=== PATIENT | male | born 1975 | race Hispanic/Latino ===

== ENCOUNTER 2017-10-30 09:50 | Emergency (ER) | payer BC ==
[2017-10-30] MEDS ORDERED: MAG HYDROX/AL HYDROX/SIMETH ES 30 ML SUSP UDCUP ONE (10:21)
[2017-10-30] MEDS ORDERED: LIDOCAINE HCL 2% VISCOUS 15 ML UDCUP ONE (10:21)
== END 2017-10-30 11:24 | disposition home or self-care (01) ==
LOC: EDH 09:50
DX: S39.011A Strain of muscle, fascia and tendon of abdomen, initial encounter (principal); M10.9 Gout, unspecified; X58.XXXA Exposure to other specified factors, initial encounter; Y93.89 Activity, other specified; Y92.89 Other specified places as the place of occurrence of the external cause; Y99.8 Other external cause status
CPT/HCPCS: 99282

== ENCOUNTER 2025-01-28 20:12 | Emergency (ER) | payer BC ==
[~2025-01-28] VITALS: Ht 177.8 cm; Wt 99.8 kg
[2025-01-28] MEDS ORDERED: VANCOMYCIN PROTOCOL PER PHARMACY IV SCH (20:30)
[2025-01-28] MEDS ORDERED: NOREPINEPHRIN 4MG/NS 250ML 250 ML IV SCH (20:30)
[2025-01-28] MEDS: NOREPINEPHRIN 4MG/NS 250ML 250 ML IV ONE (20:36)
[2025-01-28] MEDS: morPHINE 4 MG SYG ONE (20:36)
[2025-01-28] MEDS: SODIUM BICARB 50MEQ 50ML VIAL 150 ML ONE (20:36)
[2025-01-28] MEDS: morPHINE 4 MG SYG IVP ONE (20:37)
[2025-01-28] MEDS: LACTATED RINGERS 1000ML IV ONE (20:37)
[2025-01-28] MEDS: SODIUM BICARB 50MEQ 50ML VIAL IV ONE (20:38)
--- NOTE | 2025-01-28 20:40 | ERN ---
General Chief Complaint: Post-Op Problem Stated Complaint: C/O SOB, PAIN TO NECK AND CHEST, POST OP Time Seen by MD: 20:34 History of Present Illness Initial Comments Mr Melendez is a 49 year old male with significant past medical history of recent multiple surgical interventions including and hemorrhoidal banding on Sunday, cholecystectomy on Sunday at [facility] in [place] and prior fissures surgery who presents in acute distress. Per his who is the primary historian he was doing well at home until a sudden episode this evening when he was found leaning over in the room calling for help. He now complains of shoulder pain radiating downward suggestive of referred pain possibly from intra-abdominal free air or irritation. He appears to be hypotensive with a recent oxygen saturation in the 80s. Allergies: Coded Allergies: No Known Drug Allergies (Verified Allergy, Unknown, 07/20/16) Home Meds No Active Prescriptions or Reported Meds Past Medical History Past Medical History: Unknown Past Surgical History: Cholecystectomy ROS Dictation ROS is limited due to condition No fevers chills noted at home Sudden shoulder pain No preceding nausea vomiting or GI bleeding Physical Exam Physical Exam Dictation General: Appears ill leaning forward visibly in pain Head/Face: Normocephalic, atraumatic Eyes: PERRL, EOMI, vision at baseline ENT: oral cavity clear, TMs clear, no signs of infection Neck: Trachea midline, supple, no nuchal rigidity Cardiovascular: RRR, normal S1/S2, No MRGs, no JVD Respiratory: Positive for respiratory distress Abdomen: Diffusely tender concerning for peritonitis Skin: Warm, dry, normal turgor, no rash MS/Extremity: Pulses equal, no cyanosis, neurovascular intact, FROM Neuro: Alert at but uncomfortable Results Laboratory and Microbiology Lab and Micro Result Laboratory Tests Test 01/28/25 20:24 01/29/25 00:02 White Blood Count 13.6 K/uL (4.8-10.8) H Red Blood Count 5.05 MIL/uL (4.50-6.20) Hemoglobin 13.7 g/dL (14.0-18.0) L Hematocrit 43.3 % (42-54) Mean Corpuscular Volume 85.7 fL (79-99) Mean Corpuscular Hemoglobin 27.1 pg (27.0-33.0) Mean Corpuscular Hemoglobin Concent 31.6 g/dL (32.0-36.0) L Red Cell Distribution Width 14.4 % (11.0-15.5) Platelet Count 413 K/uL (130-400) H Mean Platelet Volume 9.4 fL (7.5-10.5) Immature Granulocyte % (Auto) 0.4 % (0-1) Neutrophils (%) (Auto) 57.2 % (40.0-77.0) Lymphocytes (%) (Auto) 28.6 % (21.0-51.0) Monocytes (%) (Auto) 7.4 % (3.0-13.0) Eosinophils (%) (Auto) 5.4 % (0.0-8.0) Basophils (%) (Auto) 1.0 % (0.0-5.0) Neutrophils # (Auto) 7.8 K/uL (1.8-7.7) H Lymphocytes # (Auto) 3.9 K/uL (1.0-4.8) Monocytes # (Auto) 1.0 K/uL (0.1-1.0) Eosinophils # (Auto) 0.74 K/uL (0.00-0.70) H Basophils # (Auto) 0.13 K/uL (0.00-0.20) Absolute Immature Granulocyte (auto 0.06 K/uL (0-1) Nucleated Red Blood Cells 0.0 % (0.0-0.19) Sodium Level 137 mmol/L (136-145) Potassium Level 3.5 mmol/L (3.5-5.1) Chloride Level 98 mmol/L (101-111) L Carbon Dioxide Level 28 mmol/L (21-32) Blood Urea Nitrogen 17 mg/dL (7-18) Creatinine 1.6 mg/dL (0.5-1.3) H Glomerular Filtration Rate Calc 53 mL/min (>90) Random Glucose 137 mg/dL (70-105) H Lactic Acid Level 4.4 mmol/L (0.8-2.5) H 1.6 mmol/L (0.8-2.5) Total Calcium 8.6 mg/dL (8.5-10.1) Magnesium Level 2.30 mg/dL (1.80-2.40) Total Creatine Kinase 112 U/L (21-232) Troponin I High Sensitivity 8 ng/L (4-75) Lipase 31 U/L (16-77) MDM Patient has been accepted for HLOC transfer to [facility] ED Course Orders Procedure Category Date Status Time Norepinephrin 4mg/Ns PHA 01/28/25 Complete 250ml (Levophed 4mg 20:20 Sodium Bicarb 50meq PHA 01/28/25 Complete 50ml Vial (Sodium Bi 20:21 12 Lead Ekg Tracing- EKG 01/28/25 Resulted Technical 20:21 Cbc With Differential LAB 01/28/25 Complete 20:21 Basic Metabolic Panel LAB 01/28/25 Complete 20:21 Creatine Kinase, Total LAB 01/28/25 Complete 20:21 Lactic Acid LAB 01/28/25 Complete 20:21 Blood Cult KARRIE 01/28/25 Complete 20:21 Magnesium LAB 01/28/25 Complete 20:21 Troponin I High LAB 01/28/25 Complete Sensitivity 20:21 Chest 1vw RAD 01/28/25 Resulted 20:21 Ct Abdomen/Pelvis CT 01/28/25 Resulted W/Contrast 20:21 Vancomycin Protocol PHA 01/28/25 Complete (Vancomycin Protocol 20:30 Zosyn 3.375gm+Ns 50ml PHA 01/28/25 Complete (Zosyn 3.375gm+Ns 20:30 Morphine 4mg Syg PHA 01/28/25 Complete (Morphine 4mg Syg) 20:26 Type And Screen BBK 01/28/25 Complete 20:27 Norepinephrin 4mg/Ns PHA 01/28/25 Complete 250ml (Levophed 4mg 20:30 Sodium Bicarb 50meq PHA 01/28/25 Complete 50ml Vial (Sodium Bi 20:30 Morphine 4mg Syg PHA 01/28/25 Complete (Morphine 4mg Syg) 20:30 Lactated Ringers PHA 01/28/25 Complete 1000ml (Lactated 20:30 Vancomycin 2gm/500 Ml PHA 01/28/25 Complete Bag (Vancomycin 2g 21:00 Abd 1vw RAD 01/28/25 Resulted 20:54 Vancomycin 1g/250ml PHA 01/29/25 Complete Kit (Vancomycin 1g/2 09:00 Iohexol (Omnipaque) PHA 01/28/25 Complete 21:25 Lipase LAB 01/28/25 Complete 21:52 Hydromorphone 1 Mg PHA 01/28/25 Complete Inj (Dilaudid 1mg Inj 22:30 Hydromorphone 1 Mg PHA 01/28/25 Complete Inj (Dilaudid 1mg Inj 22:24 Hydromorphone 1 Mg PHA 01/28/25 Complete Inj (Dilaudid 1mg Inj 23:30 Lactic Acid (Removed) LAB 01/28/25 Complete 23:53 Hydromorphone 1 Mg PHA 01/29/25 Complete Inj (Dilaudid 1mg Inj 00:30 Ketorolac PHA 01/29/25 Complete Tromethamine 15mg/Ml 01:00 Vital Signs Date Time Temp Pulse Resp B/P (MAP) Pulse Ox O2 Delivery O2 Flow Rate FiO2 01/29/25 02:55 98.2 54 16 120/77 96 Room Air* 0 01/29/25 02:06 58 17 138/85 96 Room Air* 0 01/29/25 01:12 98.4 76 20 154/74 97 Room Air* 0 01/29/25 00:05 98.4 71 16 135/101 96 Room Air* 0 01/28/25 23:10 98.4 76 19 105/74 99 Room Air* 0 01/28/25 22:25 98.2 70 18 175/102 99 Room Air* 0 01/28/25 20:30 98.4 74 18 164/85 98 Room Air* 0 01/28/25 20:18 97.5 138 20 70/28 86 Room Air 01/28/25 20:15 98.4 72 20 70/48 97 Room Air* 0 21 DX & DISP Disposition: Transfer Departure Impression: Primary Impression: Sepsis Critical Time: 60 minutes Condition: Stable Scripts No Active Prescriptions or Reported Meds Referrals: SELF,REFERRAL (PCP) JOANN CLINTON MD Jan 28, 2025 20:39
[2025-01-28] MEDS: ZOSYN 3.375GM +NS 50ML IV ONE (20:41)
[2025-01-28 20:45] LABS: BASOPHILS # (AUTO) 0.13 K/uL (0.00-0.20); EOSINOPHILS # (AUTO) 0.74 K/uL (0.00-0.70); EOSINOPHILS % (AUTO) 5.4 % (0.0-8.0); HEMATOCRIT 43.3 % (42-54); IMMATURE GRANULOCYTE ABSOLUTE 0.06 K/uL (0-1); LYMPHOCYTES # (AUTO) 3.9 K/uL (1.0-4.8); LYMPHOCYTES % (AUTO) 28.6 % (21.0-51.0); MEAN CORPUSCULAR HEMOGLOBIN 27.1 pg (27.0-33.0); MEAN CORPUSCULAR HGB CONC 31.6 g/dL (32.0-36.0); MEAN CORPUSCULAR VOLUME 85.7 fL (79-99); MONOCYTES % (AUTO) 7.4 % (3.0-13.0); NEUTROPHILS # (AUTO) 7.8 K/uL (1.8-7.7); NEUTROPHILS % (AUTO) 57.2 % (40.0-77.0); PLATELET COUNT (AUTO) 413 K/uL (130-400); RED BLOOD CELL COUNT(AUTO) 5.05 MIL/uL (4.50-6.20); RED CELL DISTRIBUTION WIDTH 14.4 % (11.0-15.5); WHITE BLOOD COUNT (AUTO) 13.6 K/uL (4.8-10.8)
[2025-01-28 21:03] LABS: CREATININE 1.6 mg/dL (0.5-1.3); POTASSIUM 3.5 mmol/L (3.5-5.1)
[2025-01-28 21:08] LABS: MAGNESIUM 2.3 mg/dL (1.80-2.40)
[2025-01-28] MEDS ORDERED: IOHEXOL 350 MG/ML 100ML INFUS..BTL IV ONE (21:25)
--- NOTE | 2025-01-28 21:32 | HMCIMG ---
CHEST 1VW CLINICAL HISTORY: sob COMPARISON: 01/11/2014 TECHNIQUE: Single view of the chest was obtained. FINDINGS: Lungs are clear. The cardiac size and mediastinum are unremarkable. The bony structures are within normal limits. IMPRESSION: No acute cardiopulmonary process identified.
--- NOTE | 2025-01-28 21:42 | HMCIMG ---
ABD 1VW CLINICAL HISTORY: ABD PAIN COMPARISON: None FINDINGS: Single view of the abdomen was obtained. There are multiple air-filled nondilated loops of large and small bowel. The bony structures are unremarkable. IMPRESSION: Ileus versus enteritis
--- NOTE | 2025-01-28 22:05 | HMCIMG ---
CT ABDOMEN/PELVIS W/CONTRAST CLINICAL HISTORY: post surgical pain COMPARISON: 01/08/2014 TECHNIQUE: Sequential axial images of abdomen and pelvis with 100 mL of Omnipaque 350 IV contrast with sagittal and coronal reconstructions. CT was performed with one or more of the following dose reduction techniques: automated exposure control, adjustment of the mA and/or kV according to patient size, or use of iterative reconstruction technique. FINDINGS: There is mild bilateral dependent atelectasis in lung bases. The liver and spleen are unremarkable. There is small air and fluid collection demonstrated within the gallbladder fossa that measures 7.2 x 3.3 cm with mild adjacent stranding most worrisome for postoperative abscess. The pancreas and adrenal glands are unremarkable. Note is made of a small hiatal hernia unchanged from prior bariatric surgery. There is moderate amount of fecal material in the colon with no identified bowel obstruction. The urinary bladder appears mildly distended. The kidneys are unremarkable. There is no free air or free fluid. There is mild stranding at the umbilicus and several small air bubbles consistent with postsurgical inflammatory changes potentially cellulitis. The bony structures appear unremarkable for acute findings. IMPRESSION: Unchanged prior cholecystectomy with findings worrisome for gallbladder fossa abscess. Change After surgery with small hiatal hernia. Likely unremarkable ankle cellulitis from the recent surgery
[2025-01-28] MEDS: hydroMORPHone 1 MG INJ IVP ONE ×2 (22:39→23:22)
[2025-01-28] MEDS: hydroMORPHone 1 MG INJ ONE (22:39)
[2025-01-28] MEDS: VANCOMYCIN 2GM/500 ML BAG 500 ML IV ONE (22:40)
--- NOTE | 2025-01-28 23:06 | HP ---
[facility] HISTORY AND PHYSICAL Date of Service: Jan 28, 2025 Time of Service: 23:06 HISTORY OF PRESENT ILLNESS: [ ] REVIEW OF SYSTEMS CONSTITUTIONAL: Denies fevers, chills, or night sweats. No unintentional weight loss reported. NEUROLOGICAL: Denies headache, amaurosis fugax, motor weakness, sensory deficit, vertigo/spinning sensation, gait abnormalities, or tremors. ENT: No hearing loss, otalgia, otorrhea, rhinitis, rhinorrhea, hoarseness, or sore throat. CARDIOVASCULAR: Denies any exertional angina, dyspnea on exertion, orthopnea, paroxysmal nocturnal dyspnea, palpitations, life-threatening arrhythmias, claudication. PULMONARY: Denies any shortness of breath, cough, phlegm/sputum, hemoptysis, pleuritic chest pain. SLEEP: Denies morning headaches, daytime somnolence or napping. Denies difficulty falling asleep, staying asleep, waking from sleep. Denies knowledge of snoring. GASTROINTESTINAL: Denies any type of dysphagia to either liquids or solids. Denies nausea, vomiting, pyrosis, early satiety, abdominal pain, diarrhea, constipation, or changes in stool consistency or caliber. Denies coffee-ground emesis, hematemesis, hematochezia, or melanotic stools. GENITOURINARY: Denies frequency, urgency, nocturia, hematuria or incontinence (Storage/Irritative symptoms.) Low urinary stream, straining to void, urinary intermittency or hesitancy, splitting of the voiding stream, terminal dribbling. ENDOCRINOLOGIC: Denies polyuria, polydipsia, polyphagia or heat/cold intolerances. HEMATOLOGIC: Denies thrombophilia/previous clots, or coagulopathy/bleeding disorders. ONCOLOGIC: Denies personal history of malignancy. DERMATOLOGIC: Denies rashes or pruritus. PSYCHIATRIC: Denies any suicidal or homicidal ideation. Denies hallucinations. PAST MEDICAL HISTORY: [ ] PAST SURGICAL HISTORY: [ ] PAST SOCIAL HISTORY: [ ] FAMILY HISTORY: [ ] Coded Allergies: No Known Drug Allergies (Verified Allergy, Unknown, 07/20/16) PHYSICAL EXAM GENERAL APPEARANCE: The patient is awake, alert, and oriented, in no acute cardiopulmonary distress. NEUROLOGICAL: Cranial nerves II-XII grossly intact. Motor is 5/5 in bilateral upper and lower extremities proximal to distal. No sensory deficits. HEENT: Face is symmetric. Pupils are equal and reactive. Extraocular movements are intact. NECK: Supple. No JVD. No thyromegaly. No submental, submandibular, pre- /postauricular, occipital or supraclavicular lymphadenopathy. CHEST: Normal chest expansion. No Telemetry. LUNGS: Absence of any rales, rhonchi or any wheezing. CARDIOVASCULAR: Regular. S1 and S2 normal. No appreciable rubs, murmurs or gallops. ABDOMEN: Soft, nontender, and nondistended. There is no rebound, voluntary guarding, or rigidity. : Deferred. No Grant. EXTREMITIES: Non-edematous and not cyanotic. No clubbing. Good capillary re fill. SKIN: No skin breakdown. Vital Sign (Last 24 Hours) 01/28/25 20:30 Temp 98.4 Pulse 74 Resp 18 B/P (MAP) 164/85 Pulse Ox 98 O2 Delivery Room Air* O2 Flow Rate 0 FiO2 21 LABS: Laboratory: Test 01/28/25 20:24 Range/Units White Blood Count 13.6 H 4.8-10.8 K/uL Red Blood Count 5.05 4.50-6.20 MIL/uL Hemoglobin 13.7 L 14.0-18.0 g/dL Hematocrit 43.3 42-54 % Mean Corpuscular Volume 85.7 79-99 fL Mean Corpuscular Hemoglobin 27.1 27.0-33.0 pg Mean Corpuscular Hemoglobin Concent 31.6 L 32.0-36.0 g/dL Red Cell Distribution Width 14.4 11.0-15.5 % Platelet Count 413 H 130-400 K/uL Mean Platelet Volume 9.4 7.5-10.5 fL Immature Granulocyte % (Auto) 0.4 0-1 % Neutrophils (%) (Auto) 57.2 40.0-77.0 % Lymphocytes (%) (Auto) 28.6 21.0-51.0 % Monocytes (%) (Auto) 7.4 3.0-13.0 % Eosinophils (%) (Auto) 5.4 0.0-8.0 % Basophils (%) (Auto) 1.0 0.0-5.0 % Neutrophils # (Auto) 7.8 H 1.8-7.7 K/uL Lymphocytes # (Auto) 3.9 1.0-4.8 K/uL Monocytes # (Auto) 1.0 0.1-1.0 K/uL Eosinophils # (Auto) 0.74 H 0.00-0.70 K/uL Basophils # (Auto) 0.13 0.00-0.20 K/uL Absolute Immature Granulocyte (auto 0.06 0-1 K/uL Nucleated Red Blood Cells 0.0 0.0-0.19 % Sodium Level 137 136-145 mmol/L Potassium Level 3.5 3.5-5.1 mmol/L Chloride Level 98 L 101-111 mmol/L Carbon Dioxide Level 28 21-32 mmol/L Blood Urea Nitrogen 17 7-18 mg/dL Creatinine 1.6 H 0.5-1.3 mg/dL Glomerular Filtration Rate Calc 53 >90 mL/min Random Glucose 137 H 70-105 mg/dL Lactic Acid Level 4.4 H 0.8-2.5 mmol/L Total Calcium 8.6 8.5-10.1 mg/dL Magnesium Level 2.30 1.80-2.40 mg/dL Total Creatine Kinase 112 21-232 U/L Troponin I High Sensitivity 8 4-75 ng/L Lipase 31 16-77 U/L Current Medications Medications (Trade) Dose Ordered Sig/Hans Route PRN Reason Start Time Stop Time Status Last Admin Dose Admin Norepinephrine 250 ml @ 0 mls/hr PROTOCOL IV 01/28/25 20:30 02/27/25 20:29 Vancomycin HCl 250 ml @ 125 mls/hr Q12H IV 01/29/25 09:00 02/08/25 08:59 Vancomycin HCl (Vancomycin Protocol) 1 each AD IV 01/28/25 20:30 02/11/25 20:29 DIAGNOSTICS / RADIOLOGY: [ ] ASSESSMENT: [ ] PLAN: [ ] DK HAWTHORNE ONSITE CASE MANAGER Jan 28, 2025 23:06
--- NOTE | 2025-01-28 23:59 | NUR ---
TRANSFER CALL PLACED TO [facility] [employer] CHECKER TO INITIATE TRANSFER FOR PT. WHO HAD SURGERY BY DR. GUILLEN AT [facility] [place] AND DR. GUILLEN REQUESTS THAT THIS PT. BE TRANSFERRED TO [facility]
--- NOTE | 2025-01-29 00:02 | NUR ---
TRANSFER 2ND ATTEMPT TO CONTACT [facility]. ALL LINES REMAIN BUSY
--- NOTE | 2025-01-29 00:21 | NUR ---
TRANSFER SPOKE TO [facility] CABIN OUTFITTER TO INITIATE TRANSFER. EXPLAINED THAT DR. GUILLEN WAS REQUESTING THAT THIS PT. BE TRANSFERRED TO [facility] WHERE HIS SURGERY WAS PERFORMED LAST WEEK.
[2025-01-29] MEDS: hydroMORPHone 1 MG INJ IVP ONE (00:26)
--- NOTE | 2025-01-29 00:40 | NUR ---
TRANSFER CALL PLACED TO [facility] TO INFORM THEY THAT THIS PT. WILL NEED AN ICU BED
[2025-01-29] MEDS: ketOROlac 15MG/ML VIAL (15MG/ML) IV ONE (01:07)
--- NOTE | 2025-01-29 02:11 | NUR ---
TRANSFER PT. ACCEPTED @ 0206 BY SHIRLEY LANDON MD FOR TRANSFER TO [facility]. ROOM ASSIGNMENT AT THIS TIME: 6024. REPORT: [phone]
--- NOTE | 2025-01-29 02:34 | NUR ---
[facility] CALLED FOR TRANSPORT OF MONITORED PATIENT
--- NOTE | 2025-01-29 02:54 | NUR ---
REPORT CALLED BENEDICT RIVERA AT [facility]. PENDING EMS TRANSPORT
[2025-01-29 02:55] VITALS: BP 120/77; PULSE 54; RESP 16; TEMP 98.2; O2SAT 96
--- NOTE | 2025-01-29 03:18 | NUR ---
[facility] HERE FOR TRANSFER
--- NOTE | 2025-01-29 08:42 | EKG ---
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
[2025-01-29] MEDS ORDERED: VANCOMYCIN 1G/250ML KIT 250 ML IV SCH (09:00)
== END 2025-01-29 03:23 | disposition short-term general hospital (02) ==
LOC: EDH 20:12
DX: A41.9 Sepsis, unspecified organism (principal); Z90.49 Acquired absence of other specified parts of digestive tract
CPT/HCPCS: 99291; 74177; 96365; 96375 ×2; 71045; 96366; 82550; 83735; 84484; 80048; 83690; 85025; 86850; 86900; 86901; 87040 ×2; 83605 ×2; 36415 ×2; 74018; 96376 ×2; 93005; J3490 ×2; J1171 ×3; J2270; J2543; Q9967; J3370; J1885; 99285